=== PATIENT | male | born 2000 | race Caucasian/White ===

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

== ENCOUNTER 2018-01-09 07:29 | Emergency (ER) | payer OTHER ==
--- NOTE | 2018-01-09 07:48 | EDPHY ---
H & P Time Seen by Provider: 01/09/18 07:40 HPI/ROS: CHIEF COMPLAINT: Sore throat History by patient HISTORY OF PRESENT ILLNESS: 17-year-old otherwise healthy man presents complaining of 2 days of sore throat. Yesterday his throat felt a little sore but today he noticed his tonsils were swollen and red. He is able to take food and fluids without difficulty and swallow at that difficulty but does feel slightly sore. He denies any abdominal pain nausea vomiting or diarrhea. He has had no fever. He denies any cough. He does have a little bit of a runny nose. His roommate has strep currently. He has had a history of tonsillitis in the past but never strep. REVIEW OF SYSTEMS: As in HPI, and all other systems reviewed and are negative Smoking Status: Former smoker Physical Exam: General Appearance: Alert and no distress. Head: normocephalic, atraumatic, no sinus tenderness Eyes: Pupils equal and round no injection. OP: mucus membranes moist, bilateral tonsillar enlargement, positive erythema and scant white exudates Neck: no meningismus, positive left mildly tender cervical nodes, no submandibular nodes Respiratory: Chest is nontender, lungs are clear to auscultation. No wheezes, rales, rhonchi Cardiac: regular rate and rhythm. S1, S2, no murmurs, gallops, rubs appreciated. Gastrointestinal: Abdomen is soft and nontender, no masses, bowel sounds normal. Musculoskeletal: Neck is supple and nontender. Extremities have full range of motion and are nontender. Skin: No rashes or lesions. Constitutional: Initial Vital Signs Temperature (C) 36.6 C 01/09/18 07:34 Heart Rate 83 01/09/18 07:34 Respiratory Rate 16 01/09/18 07:34 Blood Pressure 145/87 H 01/09/18 07:34 O2 Sat (%) 95 01/09/18 07:34 O2 Delivery Mode Room Air Allergies/Adverse Reactions: No Known Allergies Allergy (Verified 01/09/18 07:34) Home Medications: Medication Instructions Recorded Advair 100/50 (*) 01/09/18 Albuterol 01/09/18 MDM/Departure - [facility] ED Course/Re-evaluation: 17-year-old boy presents with sore throat and strep exposure. PCR strep was ordered on throat swab however we are unable to get [place] result off the point of care testing machine and therefore swab was sent to [facility] lab for rapid strep and culture. We will call the patient with results and call in antibiotics if necessary. We discussed other conservative measures at home such as warm salt water gargles, ibuprofen and humidified air. Patient understands and is agreeable to this plan. Incidentally, the patient was noted to have high blood pressure at triage. On recheck his blood pressure was within limits. I suspect initial pressure was not resting pressure. Rapid strep came back as negative. Patient was called with the results. - Depart Disposition: Home, Routine, Self-Care Clinical Impression: Acute pharyngitis Qualifiers: Pharyngitis/tonsillitis etiology: unspecified etiology Qualified Code(s): J02.9 - Acute pharyngitis, unspecified Condition: Good Instructions: Pharyngitis (ED) Additional Instructions: You were seen by Dr. Myesha Gutierrez today. We will call you with your strep result. We will call in antibiotics to the pharmacy of her choice if you need them. Try warm salt water gargles, ibuprofen 600 mg 4 times daily as needed for pain, and sleeping a humidifier. Return for any worsening or new concerns. Referrals: NONE *PRIMARY CARE P,. [Primary Care Provider] - As per Instructions
[2018-01-09 08:35] VITALS: BP 113/73
== END 2018-01-09 08:34 | disposition home or self-care (01) ==
LOC: CED 07:29
DX: J02.9 Acute pharyngitis, unspecified (principal); Z87.891 Personal history of nicotine dependence

== ENCOUNTER 2018-11-17 08:26 | Emergency (ER) | payer OTHER ==
[2018-11-17] MEDS ORDERED: IPRATROPIUM/ALBUTEROL 3 ML DEYVIAL IH ONE (08:30)
[2018-11-17] MEDS ORDERED: methylPREDNISolone SOD SUCC 125 MG/2 ML VIAL ONE (08:33)
[2018-11-17] MEDS ORDERED: methylPREDNISolone SOD SUCC 125 MG/2 ML VIAL IVP ONE ×2 (08:37→08:38)
[2018-11-17] MEDS ORDERED: NS 1,000 ML IV ONE (08:38)
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
[2018-11-17] MEDS ORDERED: ALBUTEROL 3 ML DEYVIAL IH ONE (09:26)
[2018-11-17 09:32] VITALS: BP 132/89
== END 2018-11-17 10:10 | disposition home or self-care (01) ==
LOC: SUPCPDRO 08:26 → CED 08:26
DX: J45.901 Unspecified asthma with (acute) exacerbation (principal); E86.9 Volume depletion, unspecified; Z87.891 Personal history of nicotine dependence
CPT/HCPCS: 96361-ER; 96374-ER; 99284-ER; J2930; J7613